=== PATIENT | male | born 2000 | race Hispanic/Latino ===

== ENCOUNTER 2024-04-06 19:04 | Inpatient (IN) | payer OTHER, SELFPAY ==
[~2024-04-06 19:04] MED LIST: Iopamidol-370 76% 500 ML MDV (1 ML CHARGE) ONE
[2024-04-06] MEDS ORDERED: Ondansetron PF 4 MG/2 ML Vial ONE (19:08)
[2024-04-06] MEDS ORDERED: fentaNYL 50 mcg/mL 1 mL Vial ONE (19:08)
[2024-04-06] MEDS ORDERED: Boostrix 0.5 ML (Tdap) VIAL (>/=7 yrs of age) ONE (19:17)
[2024-04-06 19:21] LABS: #Basophils 0.03 10x3/uL (0.0-0.2); %Basophils 0.3 % (0.0-1.0); %Eosinophils 0.8 % (0.0-10.0); %Lymphocytes 35.3 % (21.0-51.0); %Monocytes 7.4 % (0.0-10.0); %Neutrophils 54.6 % (42.0-75.0); Hematocrit 38.3 % (42.0-52.0); Hemoglobin 13.4 g/dL (14.0-18.0); Mean Corpuscular Hemoglobin 31.8 pg (27.0-31.0); Mean Corpuscular Volume 90.8 fL (78.0-98.0); Mean Platelet Volume 9.8 fL (7.4-10.4); Platelet Count 307 10x3/uL (130-400); RBC Distribution Width 12.4 % (11.5-14.5); Red Blood Cell (RBC) Count 4.22 mill/uL (4.70-6.10)
[2024-04-06 19:37] LABS: ALT (SGPT) 408 U/L (8-55); AST (SGOT) 401 U/L (5-34); Acetaminophen Less than 10 mcg/mL (Less than 10); Albumin 3.8 g/dL (3.5-5.0); Alcohol 235.9 mg/dL (Less than 10); Alkaline Phosphatase 81 U/L (40-110); Anion Gap 15 mmol/L (10-20); BUN (Urea Nitrogen) 9 mg/dL (8.9-20.6); Bilirubin, Total 0.3 mg/dL (0.2-1.2); Calc. Creatinine Clearance 0 mL/min (70-130); Calcium 8.4 mg/dL (7.8-10.44); Carbon Dioxide 21 mmol/L (22-29); Chloride 115 mmol/L (98-107); Estimated GFR 123; Globulin 2.8 g/dL (2.4-3.5); Glucose 111 mg/dL (70-105); Potassium 3.6 mmol/L (3.5-5.1); Protein, Total 6.6 g/dL (6.0-8.3); Salicylate Less than 8.0 mg/dL (Less than 8.0); Sodium 147 mmol/L (136-145)
[2024-04-06] MEDS ORDERED: Etomidate 40 MG (20 mL) VIAL ONE (19:59)
[2024-04-06] MEDS ORDERED: Rocuronium Bromide 10 MG/ML (10ML VIAL) ONE (19:59)
[2024-04-06] MEDS ORDERED: Glucagon 1 MG/ML KIT IM PRN ×2 (20:09→22:17)
[2024-04-06] MEDS ORDERED: Ondansetron PF 4 MG/2 ML Vial IVP PRN ×2 (20:09→22:17)
[2024-04-06] MEDS ORDERED: Morphine 4 MG/ML VIAL SLOW IVP PRN (20:09)
[2024-04-06] MEDS ORDERED: Dextrose 5% in Water 1,000 ML IV PRN ×2 (20:09→22:17)
[2024-04-06] MEDS ORDERED: Dextrose 50% Abboject 50 ML SYRINGE SLOW IVP PRN ×2 (20:09→22:17)
[2024-04-06] MEDS ORDERED: Promethazine HCl 25 MG/ML VIAL IM PRN (20:09)
[2024-04-06] MEDS ORDERED: Sodium Chloride 0.9% 1,000 ML IV SCH (20:15)
[2024-04-06] MEDS ORDERED: Ventilator Sedation Protocol 1 EACH FS SCH (22:15)
[2024-04-06 22:41] LABS: Actual Bicarbonate (HCO3a) 17.7 mEq/L (22-28); Base Excess (BEa) -7.3 mEq/L (-2.0 to +3.0); CO2 Tension 34.6 mmHg (35.0-45.0); Carboxyhemoglobin (COHb) 0.8 gm% (0.0-3.0); Hematocrit-ABG 40 % (42.0-52.0); Hemoglobin (Hb) 13.5 g/dL (14.0-18.0); O2 Tension (PaO2), arterial 278.7 mmHg (80.0-100.0); Potassium - ABG Lab 3.95 mmol/L (3.70-5.30); pH, Arterial 7.327 (7.35-7.45)
[2024-04-06 22:45] LABS: Puncture Site Right Brachial art
[2024-04-06] MEDS ORDERED: Morphine 2 MG/ML VIAL SLOW IVP PRN (22:45)
[2024-04-06] MEDS ORDERED: Propofol BOLUS 1,000 MG/100 ML VIAL IV PRN (22:45)
[2024-04-06] MEDS ORDERED: Fentanyl BOLUS 250 ML IVPB PRN (22:45)
[2024-04-06] MEDS ORDERED: DISCONTINUE PREVIOUS NARCOTIC PAIN MEDICATIONS AND BENZODIAZEPINES FS SCH (22:45)
[2024-04-06 23:33] LABS: #Basophils 0.04 10x3/uL (0.0-0.2); %Basophils 0.2 % (0.0-1.0); %Eosinophils 0.3 % (0.0-10.0); %Lymphocytes 11.3 % (21.0-51.0); %Monocytes 13.1 % (0.0-10.0); %Neutrophils 74.6 % (42.0-75.0); Hematocrit 39.6 % (42.0-52.0); Hemoglobin 13.7 g/dL (14.0-18.0); Mean Corpuscular HGB CONC 34.6 g/dL (32.0-36.0); Mean Corpuscular Hemoglobin 31.2 pg (27.0-31.0); Mean Corpuscular Volume 90.2 fL (78.0-98.0); Mean Platelet Volume 10.1 fL (7.4-10.4); Platelet Count 287 10x3/uL (130-400); RBC Distribution Width 12.7 % (11.5-14.5); Red Blood Cell (RBC) Count 4.39 mill/uL (4.70-6.10)
[2024-04-06] MEDS: Fentanyl CADD 100 ML IV SCH (23:48)
[2024-04-06] MEDS: Ketorolac Tromethamine 30 MG (1 mL) VIAL IVP SCH (23:53)
[2024-04-07] MEDS: Propofol 1,000 MG/100 ML VIAL IV PRN (00:06)
[2024-04-07] MEDS: Lorazepam 2 MG/ML VIAL SLOW IVP PRN (00:06)
[2024-04-07] MEDS: Lactated Ringer's 1,000 ML IV SCH (00:10)
[2024-04-07] MEDS: TETANUS, DIPHTHERIA TOX,ADULT (TDVAX) 0.5 ML VIAL IM ONE (00:11)
[2024-04-07 00:42] LABS: Prothrombin Time 13.6 sec (12.0-14.7)
[2024-04-07 00:43] LABS: PTT 26.5 sec (22.9-36.1)
[2024-04-07 00:49] LABS: ALT (SGPT) 422 U/L (8-55); AST (SGOT) 502 U/L (5-34); Albumin 3.7 g/dL (3.5-5.0); Alkaline Phosphatase 73 U/L (40-110); Anion Gap 19 mmol/L (10-20); BUN (Urea Nitrogen) 8 mg/dL (8.9-20.6); Bilirubin, Total 0.5 mg/dL (0.2-1.2); Calc. Creatinine Clearance 0 mL/min (70-130); Calcium 8.3 mg/dL (7.8-10.44); Carbon Dioxide 15 mmol/L (22-29); Chloride 114 mmol/L (98-107); Estimated GFR 123; Globulin 2.6 g/dL (2.4-3.5); Glucose 137 mg/dL (70-105); Protein, Total 6.3 g/dL (6.0-8.3); Sodium 144 mmol/L (136-145)
[2024-04-07 03:19] LABS: #Basophils 0.03 10x3/uL (0.0-0.2); #Eosinphils Less than 0.03 10x3/uL (0.0-0.7); %Basophils 0.2 % (0.0-1.0); %Lymphocytes 13.9 % (21.0-51.0); %Monocytes 12.4 % (0.0-10.0); %Neutrophils 73.2 % (42.0-75.0); Hematocrit 36.7 % (42.0-52.0); Hemoglobin 12.9 g/dL (14.0-18.0); Mean Corpuscular HGB CONC 35.1 g/dL (32.0-36.0); Mean Corpuscular Hemoglobin 32.3 pg (27.0-31.0); Mean Platelet Volume 10.1 fL (7.4-10.4); Platelet Count 281 10x3/uL (130-400); RBC Distribution Width 12.7 % (11.5-14.5); Red Blood Cell (RBC) Count 3.99 mill/uL (4.70-6.10)
[2024-04-07 03:47] LABS: Anion Gap 17 mmol/L (10-20); BUN (Urea Nitrogen) 10 mg/dL (8.9-20.6); Calc. Creatinine Clearance 0 mL/min (70-130); Calcium 8.1 mg/dL (7.8-10.44); Carbon Dioxide 17 mmol/L (22-29); Chloride 115 mmol/L (98-107); Estimated GFR 124; Glucose 104 mg/dL (70-105); Potassium 3.8 mmol/L (3.5-5.1); Sodium 145 mmol/L (136-145)
[2024-04-07 03:57] VITALS: BMI 24.9
[2024-04-07 04:06] LABS: Amphetamine Not Detected (NotDetected); Barbiturates Screen Not Detected (NotDetected); Benzodiazepine Screen Detected (NotDetected); Cocaine Metabolite Screen Not Detected (NotDetected); Methadone Not Detected (NotDetected); Methamphetamine Not Detected (NotDetected); Opiate Screen Detected (NotDetected); Oxycodone Screen Not Detected (NotDetected); Phencyclidine (PCP) Not Detected (NotDetected); THC/Cannabinoid Screen Not Detected (NotDetected); Tricyclic Screen Not Detected (NotDetected)
[2024-04-07] MEDS: Methocarbamol 500 MG TAB PO SCH (07:59)
[2024-04-07] MEDS: Famotidine 20 MG TAB PO SCH (07:59)
[2024-04-07] MEDS: Dexmedetomidine In 0.9 % NaCl 100 ML IVPB SCH (08:44)
[2024-04-07 08:47] LABS: Hematocrit 35.9 % (42.0-52.0); Hemoglobin 12.8 g/dL (14.0-18.0); Mean Corpuscular HGB CONC 35.7 g/dL (32.0-36.0); Mean Corpuscular Hemoglobin 31.6 pg (27.0-31.0); Mean Corpuscular Volume 88.6 fL (78.0-98.0); Mean Platelet Volume 9.8 fL (7.4-10.4); Platelet Count 305 10x3/uL (130-400); RBC Distribution Width 12.9 % (11.5-14.5); Red Blood Cell (RBC) Count 4.05 mill/uL (4.70-6.10)
[2024-04-07] MEDS ORDERED: Folic Acid 5 MG/ML MDV SC SCH (09:00)
[2024-04-07] MEDS: Folic Acid 0.4 MG in Syringe 0 ML SC SCH (10:20)
[2024-04-07 14:30] LABS: Hematocrit 35.2 % (42.0-52.0); Hemoglobin 12.1 g/dL (14.0-18.0); Mean Corpuscular HGB CONC 34.4 g/dL (32.0-36.0); Mean Corpuscular Hemoglobin 31.9 pg (27.0-31.0); Mean Corpuscular Volume 92.9 fL (78.0-98.0); Mean Platelet Volume 9.9 fL (7.4-10.4); Platelet Count 286 10x3/uL (130-400); RBC Distribution Width 13.1 % (11.5-14.5); Red Blood Cell (RBC) Count 3.79 mill/uL (4.70-6.10)
[2024-04-07 20:00] LABS: Hematocrit 34.4 % (42.0-52.0); Hemoglobin 11.6 g/dL (14.0-18.0); Mean Corpuscular HGB CONC 33.7 g/dL (32.0-36.0); Mean Corpuscular Hemoglobin 31.6 pg (27.0-31.0); Mean Corpuscular Volume 93.7 fL (78.0-98.0); Mean Platelet Volume 9.6 fL (7.4-10.4); Platelet Count 265 10x3/uL (130-400); RBC Distribution Width 13.2 % (11.5-14.5); Red Blood Cell (RBC) Count 3.67 mill/uL (4.70-6.10)
[2024-04-07] MEDS ORDERED: Enoxaparin 30 MG (0.3 mL) SYRINGE SC SCH (21:00)
[2024-04-07] MEDS: Acetaminophen 325 MG TAB PO PRN (21:06)
[2024-04-08] MEDS: DC Sedation Protocol FS ONE (01:15)
[2024-04-08 05:42] LABS: #Basophils 0.03 10x3/uL (0.0-0.2); %Basophils 0.3 % (0.0-1.0); %Eosinophils 2.3 % (0.0-10.0); %Lymphocytes 20.5 % (21.0-51.0); %Neutrophils 61.5 % (42.0-75.0); Hematocrit 33.4 % (42.0-52.0); Mean Corpuscular HGB CONC 32.9 g/dL (32.0-36.0); Mean Corpuscular Hemoglobin 31.3 pg (27.0-31.0); Mean Corpuscular Volume 95.2 fL (78.0-98.0); Mean Platelet Volume 10.3 fL (7.4-10.4); Platelet Count 277 10x3/uL (130-400); Red Blood Cell (RBC) Count 3.51 mill/uL (4.70-6.10)
[2024-04-08 06:36] LABS: ALT (SGPT) 250 U/L (8-55); AST (SGOT) 184 U/L (5-34); Albumin 2.8 g/dL (3.5-5.0); Alkaline Phosphatase 53 U/L (40-110); Anion Gap 11 mmol/L (10-20); BUN (Urea Nitrogen) 17 mg/dL (8.9-20.6); Bilirubin, Total 0.9 mg/dL (0.2-1.2); Calc. Creatinine Clearance 153 mL/min (70-130); Calcium 8.5 mg/dL (7.8-10.44); Carbon Dioxide 25 mmol/L (22-29); Chloride 112 mmol/L (98-107); Estimated GFR 129; Globulin 2.6 g/dL (2.4-3.5); Glucose 95 mg/dL (70-105); Phosphorus 2.8 mg/dL (2.3-4.7); Potassium 3.7 mmol/L (3.5-5.1); Protein, Total 5.4 g/dL (6.0-8.3); Sodium 144 mmol/L (136-145)
[2024-04-08] MEDS: CIPRO EYE L EYE SCH (09:20)
[2024-04-08] MEDS: HYDROcodone/Acetaminophen 10/325 mg Tablet PO PRN (09:30)
[2024-04-08 10:06] LABS: Bacteria/HPF None Seen HPF (None Seen); Bilirubin Negative (Negative); Blood, Urine 2+ (Negative); CAUTI Indications for Culture Urological Procedure; Clarity Clear (Clear); Glucose, Urine (Dipstick) 30 mg/dL (Negative); Ketone, Urine Trace mg/dL (Negative); Leukocyte Negative Leu/uL (Negative); Nitrite Negative (Negative); Protein, Urine (Dipstick) 20 mg/dL (Neg-Trace); Squamous Epithelial None Seen HPF (0-3); Urobilinogen Normal mg/dL (Less than 2); pH, Urine 5.5 (5.0-9.0)
[2024-04-08 10:10] LABS: Urine Culture Reflex Yes Yes
[2024-04-08] MEDS: traMADol HCl 50 MG TAB PO PRN (20:39)
[2024-04-09] MEDS: diphenhydrAMINE 50 MG/ML VIAL IVP SCH (00:57)
[2024-04-09] MEDS: Enoxaparin 30 MG (0.3 mL) SYRINGE SC SCH (07:19)
[2024-04-09] MEDS: Thiamine 100 MG TAB PER TUBE SCH (07:20)
[2024-04-09] MEDS: Folic Acid 1 MG TAB PER TUBE SCH (07:21)
[2024-04-09] MEDS: HYDROcodone/Acetaminophen 5/325 mg Tablet PO PRN (10:20)
[2024-04-09] MEDS: Acetaminophen 325 MG TAB PO SCH (14:11)
[2024-04-09] MEDS: traMADol HCl 50 MG TAB PO PRN (14:12)
[2024-04-09] MEDS: Morphine 2 MG/ML VIAL SLOW IVP PRN (16:33)
[2024-04-09] MEDS: traMADol HCl 50 MG TAB PO SCH (17:27)
[2024-04-10 05:35] LABS: #Basophils 0.05 10x3/uL (0.0-0.2); %Basophils 0.4 % (0.0-1.0); %Eosinophils 4.6 % (0.0-10.0); %Lymphocytes 11.7 % (21.0-51.0); %Monocytes 10.1 % (0.0-10.0); %Neutrophils 72.7 % (42.0-75.0); Hematocrit 33.3 % (42.0-52.0); Hemoglobin 11.7 g/dL (14.0-18.0); Mean Corpuscular HGB CONC 35.1 g/dL (32.0-36.0); Mean Corpuscular Hemoglobin 31.8 pg (27.0-31.0); Mean Corpuscular Volume 90.5 fL (78.0-98.0); Mean Platelet Volume 10.2 fL (7.4-10.4); Platelet Count 380 10x3/uL (130-400); Red Blood Cell (RBC) Count 3.68 mill/uL (4.70-6.10)
[2024-04-10] MEDS: Enoxaparin 40 MG (0.4 mL) SYRINGE SC SCH (09:50)
[2024-04-10] MEDS: Haemoph B Poly Conj-Tet Tox/PF 10 MCG/0.5 ML VIAL IM ONE (16:51)
[2024-04-10] MEDS: PNEUMOC 20-VAL CONJ-DIP CRM/PF 0.5 ML SYRINGE IM ONE (16:55)
[2024-04-10] MEDS: Melatonin 3 MG TAB PO PRN (21:23)
[2024-04-11] MEDS: Mening Vac A,C,Y,W-135 Dip/PF (MENVEO) IM ONE (06:02)
[2024-04-11 07:59] VITALS: BP 134/81; TEMP 98.2
== END 2024-04-11 12:33 | disposition home or self-care (01) | DRG 163 ==
LOC: ERS 19:04 → SDC/OP 20:21 → CCU 22:12 → SJJU 04-09 09:41
PROVIDERS: ADMIT Surgery; ATTEND Surgery
PROC: 07TP0ZZ Resection of Spleen, Open Approach (ICD-10-PCS; principal; 2024-04-06)
PROC: 0BQT0ZZ Repair Diaphragm, Open Approach (ICD-10-PCS; 2024-04-06)
PROC: 0W9B30Z Drainage of Left Pleural Cavity with Drainage Device, Percutaneous Approach (ICD-10-PCS; 2024-04-06)
PROC: 4A033R1 Measurement of Arterial Saturation, Peripheral, Percutaneous Approach (ICD-10-PCS; 2024-04-06)
PROC: 0BH17EZ Insertion of Endotracheal Airway into Trachea, Via Natural or Artificial Opening (ICD-10-PCS; 2024-04-06)
PROC: 5A1935Z Respiratory Ventilation, Less than 24 Consecutive Hours (ICD-10-PCS; 2024-04-06)
PROC: 3E0234Z Introduction of Serum, Toxoid and Vaccine into Muscle, Percutaneous Approach (ICD-10-PCS; 2024-04-10)
DX: S27.808A Other injury of diaphragm, initial encounter (principal); J96.90 Respiratory failure, unspecified, unspecified whether with hypoxia or hypercapnia; S22.028A Other fracture of second thoracic vertebra, initial encounter for closed fracture; S22.42XA Multiple fractures of ribs, left side, initial encounter for closed fracture; S27.0XXA Traumatic pneumothorax, initial encounter; S27.321A Contusion of lung, unilateral, initial encounter; E87.20 Acidosis, unspecified; K46.9 Unspecified abdominal hernia without obstruction or gangrene; K66.8 Other specified disorders of peritoneum; V89.2XXA Person injured in unspecified motor-vehicle accident, traffic, initial encounter; F10.129 Alcohol abuse with intoxication, unspecified; D64.9 Anemia, unspecified; Z23 Encounter for immunization
CPT/HCPCS: 31500; 36415; 36600; 51702; 70450; 71045; 71260; 72125; 74177; 80053; 80306; 80307; 81001; 82805; 84100; 85025; 85610; 85730; 86850; 86900; 86901; 87086; 88305; 90471; 90630; 90648; 90677; 90715; 90734; 93005; 94002; 94003; 96374; 96375; A4649; C1729; G0009; G0390; J1200; J1650; J1885; J2060; J2272; J2405; J2704; J3010; J3411; J7120; Q9967

== ENCOUNTER 2024-06-18 02:44 | Emergency (ER) | payer SELFPAY ==
[2024-06-18 04:28] LABS: #Basophils 0.05 10x3/uL (0.0-0.2); %Basophils 0.5 % (0.0-1.0); %Eosinophils 4.2 % (0.0-10.0); %Lymphocytes 37.9 % (21.0-51.0); %Monocytes 12.1 % (0.0-10.0); %Neutrophils 44.9 % (42.0-75.0); Hematocrit 38.1 % (42.0-52.0); Mean Corpuscular HGB CONC 34.1 g/dL (32.0-36.0); Mean Corpuscular Hemoglobin 30.4 pg (27.0-31.0); Mean Platelet Volume 9.3 fL (7.4-10.4); Platelet Count 519 10x3/uL (130-400); RBC Distribution Width 13.7 % (11.5-14.5); Red Blood Cell (RBC) Count 4.28 mill/uL (4.70-6.10)
[2024-06-18 04:53] LABS: Bacteria/HPF None Seen HPF (None Seen); Bilirubin Negative (Negative); Blood, Urine Negative (Negative); CAUTI Indications for Culture Fever or rigors; Clarity Clear (Clear); Glucose, Urine (Dipstick) Normal (Negative); Ketone, Urine Negative (Negative); Leukocyte Negative Leu/uL (Negative); Nitrite Negative (Negative); Protein, Urine (Dipstick) 10 mg/dL (Neg-Trace); RBC/HPF 0-3 HPF (0-3); Specific Gravity, Urine 1.021 (1.002-1.036); Squamous Epithelial None Seen HPF (0-3); Urobilinogen Normal mg/dL (Less than 2); WBC/HPF 0-3 HPF (0-3); pH, Urine 7.5 (5.0-9.0)
[2024-06-18 04:57] LABS: Anion Gap 12 mmol/L (10-20); BUN (Urea Nitrogen) 12 mg/dL (8.9-20.6); Calc. Creatinine Clearance 0 mL/min (70-130); Carbon Dioxide 25 mmol/L (22-29); Chloride 105 mmol/L (98-107); Estimated GFR 71; Potassium 3.8 mmol/L (3.5-5.1); Sodium 138 mmol/L (136-145)
[2024-06-18 04:58] LABS: ALT (SGPT) 57 U/L (8-55); AST (SGOT) 33 U/L (5-34); Albumin 3.7 g/dL (3.5-5.0); Alkaline Phosphatase 130 U/L (40-110); Bilirubin, Total 0.3 mg/dL (0.2-1.2); Calcium 9.1 mg/dL (7.8-10.44); Globulin 3.1 g/dL (2.4-3.5); Glucose 104 mg/dL (70-105); Lipase 26 U/L (8-78); Protein, Total 6.8 g/dL (6.0-8.3)
[2024-06-18 05:38] LABS: Urine Culture Reflex No No
[2024-06-18] MEDS ORDERED: Iopamidol 370 76% 100 ML VIAL ONE (10:03)
== END 2024-06-18 06:34 | disposition home or self-care (01) ==
LOC: ERS 02:44
DX: R10.30 Lower abdominal pain, unspecified (principal)
CPT/HCPCS: 36415; 74177; 80053; 81001; 83690; 85025; Q9967